=== PATIENT | female | born 2005 | race Hispanic/Latino ===

== ENCOUNTER 2025-01-31 12:49 | Emergency (ER) | payer OTHER ==
[~2025-01-31] VITALS: Ht 157.5 cm; Wt 56.2 kg
[2025-01-31] MEDS ORDERED: IBUPROFEN 600 MG TAB PO ONE (13:30)
[2025-01-31] MEDS ORDERED: IBUPROFEN 100 MG/5 ML CUP PO ONE (13:30)
[2025-01-31] MEDS ORDERED: TOPIRAMATE25 MG PO (14:05)
[2025-01-31] MEDS ORDERED: PANTOPRAZOLE SO40 MG PO (14:05)
[2025-01-31] MEDS ORDERED: PROPRANOLOL HCL60 MG PO (14:05)
[2025-01-31] MEDS ORDERED: FLUOXETINE HCL10 MG PO (14:06)
[2025-01-31 14:50] VITALS: BP 99/53
== END 2025-01-31 14:50 | disposition home or self-care (01) ==
LOC: ED 12:49
DX: S63.501A Unspecified sprain of right wrist, initial encounter (principal); X50.9XXA Other and unspecified overexertion or strenuous movements or postures, initial encounter; Z79.899 Other long term (current) drug therapy; Z91.030 Bee allergy status; Z88.0 Allergy status to penicillin
CPT/HCPCS: 73110; 99283; A9270